=== PATIENT | female | born 1980 | race Caucasian/White ===

== ENCOUNTER 2019-08-06 16:19 | Emergency (ER) | payer MEDICAID ==
[~2019-08-06] VITALS: Ht 162.6 cm; Wt 127.0 kg
[~2019-08-06 16:19] MED LIST: AMLO10TA80 PO; Clonidine Hcl PO; FURO40TA5 PO; LOSA100T3 PO
[2019-08-06] MEDS ORDERED: ACETAMINOPHEN 325MG TABLET PO STA (18:21)
[2019-08-06] MEDS ORDERED: AMLODIPINE 5MG TABLET PO ONE (18:45)
[2019-08-06 19:01] LABS: BASOPHILS % 0.8 % (0.0-2.0); EOSINOPHILS % 1.1 % (0.0-5.0); HEMATOCRIT. 32.2 % (36.0-48.0); HEMOGLOBIN. 10.4 g/dL (12.0-16.0); LYMPHOCYTES % 24.8 % (20.0-50.0); MEAN CORPUSCULAR HEMOGLOBIN 23.5 pg (28.0-32.0); MEAN CORPUSCULAR VOLUME 73.1 fL (81.0-99.0); MEAN PLATELET VOLUME 7.2 fl (7.4-10.4); MONOCYTES % 4.6 % (2.0-8.0); NEUTROPHILS % 68.7 % (40.0-76.0); PLATELET 388 x1000/uL (130-400); RED BLOOD CELL COUNT 4.41 mill/uL (4.2-5.4); RED CELL DISTRIBUTION WIDTH 17.4 % (11.6-14.6)
[2019-08-06 19:09] LABS: CHLORIDE 106 mEq/L (98-107)
[2019-08-06 19:28] LABS: CLARITY URINE CLEAR (CLEAR); COLOR URINE YELLOW (YELLOW); KETONES URINE NEGATIVE (NEGATIVE); LEUKOCYTE ESTERASE URINE NEGATIVE (NEGATIVE); NITRITE URINE NEGATIVE (NEGATIVE); OCCULT BLOOD URINE TRACE (NEGATIVE); PH URINE 5.5 (4.5-8.0); PROTEIN URINE 3+ (NEGATIVE); SPECIFIC GRAVITY URINE 1.026 (1.005-1.030); UROBILINOGEN URINE 0.2 E.U./dL (0.2-1.0)
[2019-08-06 22:00] VITALS: BP 197/87
== END 2019-08-06 22:10 | disposition home or self-care (01) ==
LOC: ER 16:19
DX: I11.0 Hypertensive heart disease with heart failure (principal); H53.8 Other visual disturbances; R51 Headache; I50.9 Heart failure, unspecified; Z98.890 Other specified postprocedural states; Z79.899 Other long term (current) drug therapy
CPT/HCPCS: 36415; 80053; 81003; 81025; 85025; 93005; 99285